=== PATIENT | male | born 1990 | race Caucasian/White ===

== ENCOUNTER 2021-01-30 06:40 | Emergency (ER) | payer OTHER ==
[~2021-01-30] VITALS: Ht 170.2 cm; Wt 109.1 kg
[2021-01-30 06:52] VITALS: BP 129/84
[2021-01-30 08:44] VITALS: PULSE 93; TEMP 98.2
== END 2021-01-30 08:44 | disposition home or self-care (01) ==
LOC: COL.ER 06:40
DX: U07.1 COVID-19 (principal)